=== PATIENT | female | born 1960 | race Caucasian/White ===

== ENCOUNTER 2022-07-16 09:25 | Inpatient (IN) ==
[2022-07-16] MEDS ORDERED: SODIUM CHLORIDE 0.9% 1,000 ML IV STA (09:53)
[2022-07-16] MEDS ORDERED: PIPERACILLIN/TAZOBACTAM 3,375 MG in SODIUM CHLORIDE 0.9% 100 ML IV STA (09:53)
[2022-07-16 10:22] LABS: Hematocrit 19.1 VOL% (35.7-47.0); Hemoglobin 6.5 GM/DL (12.0-16.0); Immature Granulocytes Absolute 0.07 #; Lymphocytes # 0.2 10*3/uL (1.4-4.0); Lymphocytes % 15.8 % (21.3-54.2); Mean Corpuscular Volume 84.5 FL (87-102); Mean Platelet Volume 11.9 FL (9.6-12.0); Monocytes # 0.2 10*3/uL (0.11-0.8); Monocytes % 16.5 % (1.7-12.7); NRBC # 0.03 10*3/uL; Neutrophils % 62.7 % (38.7-73.9); Red Blood Count 2.26 MC/CUMM (3.8-5.5); Red Cell Distribution Width 18.3 % (9.3-17.3); White Blood Count 1.4 T/CUMM (4-12)
[2022-07-16 10:24] LABS: Platelet Count 34 T/CUMM (130-400)
[2022-07-16 10:28] LABS: INR 1.1; PT Patient Result 12.1 SECS (10.1-12.1); Partial Thromboplastin Time 36.8 SECS (23.7-32.9)
[2022-07-16 10:38] LABS: Albumin 2.6 G/DL (3.4-5.0); Bilirubin,Total 0.6 MG/DL (0.20-1.00); Calcium 8.8 MG/DL (8.5-10.1); Osmolality,Calculated 266.5 MOS/KG (273-304); Potassium 3.4 MMOL/L (3.5-5.1); Total Protein 7.1 G/DL (6.4-8.2)
[2022-07-16 10:43] LABS: Band Neutrophils 2 % (0-10); Hypochromia 1+; Lymphocytes 16 % (20-55); Microcytosis 1+; Platelet Estimate Decreased; Total Cells Counted 100
[2022-07-16] MEDS ORDERED: ZALEPLON 5 MG CAPSULE PO PRN (11:46)
[2022-07-16] MEDS ORDERED: ONDANSETRON 4 MG/2 ML VIAL IV PRN (11:46)
[2022-07-16] MEDS ORDERED: ALBUTEROL/IPRATROPIUM 3 ML NEB RESP TX PRN (12:16)
[2022-07-16] MEDS: SODIUM CHLORIDE 0.9% 1,000 ML IV SCH ×2 (14:08→22:00)
[2022-07-16] MEDS: guaiFENesin/DM ER 600-30 MG TABLET PO SCH ×2 (14:09→22:01)
[2022-07-16] MEDS: FILGRASTIM-SNDZ 480 MCG/0.8 ML SYRINGE SUBCUT SCH (14:16)
[2022-07-16] MEDS ORDERED: SODIUM CHLORIDE 0.9% 1,000 ML IV PRN (16:27)
[2022-07-16] MEDS: PIPERACILLIN/TAZOBACTAM 3,375 MG in SODIUM CHLORIDE 0.9% 100 ML IV SCH (18:17)
[2022-07-16] MEDS ORDERED: ACETAMINOPHEN 500 MG TABLET PO PRN (18:52)
[2022-07-17] MEDS: PIPERACILLIN/TAZOBACTAM 3,375 MG in SODIUM CHLORIDE 0.9% 100 ML IV SCH ×3 (02:30→17:32)
[2022-07-17] MEDS: SODIUM CHLORIDE 0.9% 1,000 ML IV SCH ×3 (03:47→17:31)
[2022-07-17 04:59] LABS: Mucus,Urine Occasional /LPF (Occasional); RBC,Urine 173 /HPF (0-4); Squamous Epithelial Cell,Urine Occasional /HPF (0-10)
[2022-07-17 05:00] LABS: Glucose,Urine (UA) Negative (Negative); Protein,Urine 30 mg/dL (Negative); Urine Appearance Clear (Clear); Urine Color Yellow (Yellow)
[2022-07-17 05:01] LABS: Bilirubin,Urine Negative (Negative); Blood, Urine Moderate mg/dL (Negative); Ketones,Urine Negative (Negative); Nitrite,Urine Positive (Negative); Urine Urobilinogen 0.2 eU/dL (<2.0)
[2022-07-17 07:09] LABS: Basophils % 0.8 % (0.0-0.8); Hematocrit 24.5 VOL% (35.7-47.0); Immature Granulocytes % 10.9 %; Immature Granulocytes Absolute 0.28 #; Lymphocytes # 0.2 10*3/uL (1.4-4.0); Lymphocytes % 9.3 % (21.3-54.2); Mean Corpuscular HGB Conc 32.7 GM/DL (32-36); Mean Corpuscular Volume 90.1 FL (87-102); Monocytes # 0.3 10*3/uL (0.11-0.8); Monocytes % 11.6 % (1.7-12.7); NRBC # 0.05 10*3/uL; Neutrophils % 67.4 % (38.7-73.9); Red Cell Distribution Width 18.9 % (9.3-17.3)
[2022-07-17 07:11] LABS: Red Blood Count 2.72 MC/CUMM (3.8-5.5); White Blood Count 2.6 T/CUMM (4-12)
[2022-07-17 07:13] LABS: Platelet Count 35 T/CUMM (130-400)
[2022-07-17 07:31] LABS: Albumin 2.3 G/DL (3.4-5.0); Bilirubin,Total 0.8 MG/DL (0.20-1.00); Calcium 8.7 MG/DL (8.5-10.1); Osmolality,Calculated 273.8 MOS/KG (273-304); Potassium 3.4 MMOL/L (3.5-5.1); Total Protein 6.4 G/DL (6.4-8.2)
[2022-07-17 07:32] LABS: Band Neutrophils 6 % (0-10); Eosinophils 1 % (0-10); Hypochromia Slight; Lymphocytes 13 % (20-55); Microcytosis Slight; Nucleated Red Blood Cells 1 /100 WBC (0-5); Platelet Estimate Decreased; Total Cells Counted 100
[2022-07-17] MEDS ORDERED: VANCOMYCIN INJ 1,000 MG in SODIUM CHLORIDE 0.9% 250 ML IV SCH (08:30)
[2022-07-17] MEDS ORDERED: MYLANTA/LIDO VISC/NYST 180 ML BOTTLE SWISH/SPIT PRN (08:37)
[2022-07-17] MEDS: guaiFENesin/DM ER 600-30 MG TABLET PO SCH ×2 (09:41→22:03)
[2022-07-17] MEDS: FOLIC ACID 1 MG TABLET PO SCH (09:41)
[2022-07-17] MEDS: FLUCONAZOLE 100 MG TABLET PO SCH (09:41)
[2022-07-17] MEDS: PANTOPRAZOLE 40 MG TABLET PO SCH (09:42)
[2022-07-17] MEDS: VANCOMYCIN INJ 1,250 MG in SODIUM CHLORIDE 0.9% 250 ML IV SCH ×2 (09:42→22:03)
[2022-07-17] MEDS: FILGRASTIM-SNDZ 480 MCG/0.8 ML SYRINGE SUBCUT SCH (09:43)
[2022-07-17] MEDS ORDERED: MYLANTA/LIDO VISC/NYST 180 ML BOTTLE SWISH/SWAL PRN (14:30)
[2022-07-17] MEDS: APIXABAN 5 MG TABLET PO SCH (22:03)
[2022-07-18] MEDS: SODIUM CHLORIDE 0.9% 1,000 ML IV SCH ×2 (00:07→17:43)
[2022-07-18] MEDS: PIPERACILLIN/TAZOBACTAM 3,375 MG in SODIUM CHLORIDE 0.9% 100 ML IV SCH ×3 (02:36→18:16)
[2022-07-18 04:51] LABS: Basophils % 0.8 % (0.0-0.8); Hematocrit 25.2 VOL% (35.7-47.0); Hemoglobin 8.2 GM/DL (12.0-16.0); Immature Granulocytes % 28.3 %; Lymphocytes # 0.4 10*3/uL (1.4-4.0); Lymphocytes % 9.5 % (21.3-54.2); Mean Corpuscular HGB Conc 32.5 GM/DL (32-36); Mean Corpuscular Volume 89.7 FL (87-102); Mean Platelet Volume 12.3 FL (9.6-12.0); Monocytes # 0.4 10*3/uL (0.11-0.8); NRBC # 0.09 10*3/uL; Neutrophils % 51.4 % (38.7-73.9); Platelet Count 50 T/CUMM (130-400); Red Blood Count 2.81 MC/CUMM (3.8-5.5); White Blood Count 3.9 T/CUMM (4-12)
[2022-07-18 05:24] LABS: Albumin 2.3 G/DL (3.4-5.0); Bilirubin,Total 0.5 MG/DL (0.20-1.00); Calcium 8.6 MG/DL (8.5-10.1); Osmolality,Calculated 270.8 MOS/KG (273-304); Potassium 2.8 MMOL/L (3.5-5.1); Total Protein 6.5 G/DL (6.4-8.2)
[2022-07-18 05:30] LABS: Band Neutrophils 7 % (0-10); Lymphocytes 8 % (20-55); Platelet Estimate Decreased; Total Cells Counted 100
[2022-07-18 05:31] LABS: Hypochromia Slight; Microcytosis Slight
[2022-07-18] MEDS: PANTOPRAZOLE 40 MG TABLET PO SCH (09:55)
[2022-07-18] MEDS: FOLIC ACID 1 MG TABLET PO SCH (09:55)
[2022-07-18] MEDS: guaiFENesin/DM ER 600-30 MG TABLET PO SCH ×2 (09:55→20:56)
[2022-07-18] MEDS: APIXABAN 5 MG TABLET PO SCH ×2 (09:55→20:56)
[2022-07-18] MEDS: VANCOMYCIN INJ 1,250 MG in SODIUM CHLORIDE 0.9% 250 ML IV SCH ×2 (09:56→23:54)
[2022-07-18] MEDS: FLUCONAZOLE 100 MG TABLET PO SCH (09:56)
[2022-07-18] MEDS: FILGRASTIM-SNDZ 480 MCG/0.8 ML SYRINGE SUBCUT SCH (09:57)
[2022-07-18] MEDS ORDERED: LACTULOSE 20 GM/30 ML UDCUP PO PRN (16:42)
[2022-07-19] MEDS: SODIUM CHLORIDE 0.9% 1,000 ML IV SCH (03:42)
[2022-07-19] MEDS: PIPERACILLIN/TAZOBACTAM 3,375 MG in SODIUM CHLORIDE 0.9% 100 ML IV SCH ×2 (03:43→09:10)
[2022-07-19 04:51] LABS: Basophils # 0.1 10*3/uL (0.0-0.2); Basophils % 0.8 % (0.0-0.8); Eosinophils % 0.1 % (0.00-10.9); Hematocrit 27.3 VOL% (35.7-47.0); Hemoglobin 8.7 GM/DL (12.0-16.0); Immature Granulocytes % 16.8 %; Immature Granulocytes Absolute 1.21 #; Lymphocytes # 0.7 10*3/uL (1.4-4.0); Lymphocytes % 9.7 % (21.3-54.2); Mean Corpuscular HGB Conc 31.9 GM/DL (32-36); Mean Corpuscular Volume 92.2 FL (87-102); Mean Platelet Volume 12.4 FL (9.6-12.0); Monocytes # 0.7 10*3/uL (0.11-0.8); Monocytes % 10.2 % (1.7-12.7); NRBC # 0.13 10*3/uL; Neutrophils % 62.4 % (38.7-73.9); Platelet Count 87 T/CUMM (130-400); Red Blood Count 2.96 MC/CUMM (3.8-5.5); Red Cell Distribution Width 19.6 % (9.3-17.3); White Blood Count 7.2 T/CUMM (4-12)
[2022-07-19 05:05] LABS: Albumin 2.4 G/DL (3.4-5.0); Bilirubin,Total 0.5 MG/DL (0.20-1.00); Calcium 9.2 MG/DL (8.5-10.1); Osmolality,Calculated 276.4 MOS/KG (273-304); Potassium 2.8 MMOL/L (3.5-5.1); Total Protein 6.6 G/DL (6.4-8.2)
[2022-07-19 05:17] LABS: Band Neutrophils 6 % (0-10); Lymphocytes 15 % (20-55); Metamyelocytes 1 %; Nucleated Red Blood Cells 1 /100 WBC (0-5); Promyelocytes 3 %; Total Cells Counted 100
[2022-07-19 05:18] LABS: Hypochromia Slight; Microcytosis 1+; Platelet Estimate Decreased; Polychromasia Slight
[2022-07-19] MEDS ORDERED: POTASSIUM CHLORIDE 20 MEQ TABLET PO PRN (08:45)
[2022-07-19] MEDS: PANTOPRAZOLE 40 MG TABLET PO SCH (09:05)
[2022-07-19] MEDS: guaiFENesin/DM ER 600-30 MG TABLET PO SCH (09:06)
[2022-07-19] MEDS: FLUCONAZOLE 100 MG TABLET PO SCH (09:06)
[2022-07-19] MEDS: FOLIC ACID 1 MG TABLET PO SCH (09:06)
[2022-07-19] MEDS: APIXABAN 5 MG TABLET PO SCH (09:06)
[2022-07-19] MEDS: FILGRASTIM-SNDZ 480 MCG/0.8 ML SYRINGE SUBCUT SCH (09:14)
[2022-07-19] MEDS ORDERED: POTASSIUM CHLORIDE 20 MEQ TABLET PO ONE ×3 (09:26→14:30)
[2022-07-19 12:05] VITALS: BP 143/88
[2022-07-19] MEDS: VANCOMYCIN INJ 1,250 MG in SODIUM CHLORIDE 0.9% 250 ML IV SCH (12:43)
== END 2022-07-19 15:53 | disposition home or self-care (01) | DRG 871 ==
LOC: N.ED 09:25 → N.EDINP 11:46 → SUATTDRO 11:46 → N.EDINP 12:53 → N.TELES 13:06
PROVIDERS: ADMIT Family Medicine; ATTEND Internal Medicine

== ENCOUNTER 2022-08-11 17:06 | Inpatient (IN) ==
[2022-08-11] MEDS ORDERED: SODIUM CHLORIDE 0.9% 1,000 ML IV STA (18:09)
[2022-08-11] MEDS ORDERED: ONDANSETRON 4 MG/2 ML VIAL IV STA (18:09)
[2022-08-11 18:26] LABS: Eosinophils % 2.6 % (0.00-10.9); Lymphocytes # 0.2 10*3/uL (1.4-4.0); Lymphocytes % 39.5 % (21.3-54.2); Mean Corpuscular HGB Conc 32.4 GM/DL (32-36); Mean Corpuscular Volume 92.3 FL (87-102); Mean Platelet Volume 10.7 FL (9.6-12.0); Monocytes # 0.1 10*3/uL (0.11-0.8); Monocytes % 13.2 % (1.7-12.7); Neutrophils % 44.7 % (38.7-73.9); Platelet Count 59 T/CUMM (130-400); Red Blood Count 1.94 MC/CUMM (3.8-5.5); Red Cell Distribution Width 17.5 % (9.3-17.3)
[2022-08-11 18:28] LABS: Hematocrit 17.9 VOL% (35.7-47.0); Hemoglobin 5.8 GM/DL (12.0-16.0); White Blood Count 0.4 T/CUMM (4-12)
[2022-08-11 18:34] LABS: Albumin 2.8 G/DL (3.4-5.0); Bilirubin,Total 0.7 MG/DL (0.20-1.00); Calcium 9.2 MG/DL (8.5-10.1); Osmolality,Calculated 269.4 MOS/KG (273-304); Potassium 3.5 MMOL/L (3.5-5.1); Total Protein 7.4 G/DL (6.4-8.2)
[2022-08-11] MEDS ORDERED: SODIUM CHLORIDE 0.9% 1,000 ML IV PRN (19:13)
[2022-08-11] MEDS ORDERED: ACETAMINOPHEN 325 MG TABLET PO PRN (19:16)
[2022-08-11 19:19] LABS: Lymphocytes 56 % (20-55); Platelet Estimate Decreased; Total Cells Counted 100
[2022-08-11 19:20] LABS: Hypochromia Slight
[2022-08-11 19:21] LABS: Stomatocytes Slight
[2022-08-11] MEDS ORDERED: FILGRASTIM-SNDZ 480 MCG/0.8 ML SYRINGE SUBCUT ONE (20:00)
[2022-08-11] MEDS: SODIUM CHLORIDE 0.9% 1,000 ML IV SCH (20:50)
[2022-08-12 02:08] LABS: Bacteria,Urine Few /HPF (Few); Mucus,Urine Few /LPF (Occasional); RBC,Urine 5 /HPF (0-4); Squamous Epithelial Cell,Urine Moderate /HPF (0-10); Urine Appearance Clear (Clear); Urine Color Yellow (Yellow)
[2022-08-12 02:09] LABS: Bilirubin,Urine Negative (Negative); Blood, Urine Trace mg/dL (Negative); Glucose,Urine (UA) Negative (Negative); Ketones,Urine Negative (Negative); Nitrite,Urine Negative (Negative); Protein,Urine Trace mg/dL (Negative); Urine Urobilinogen 0.2 eU/dL (<2.0); Urine pH 8.5 (4.5-8.0)
[2022-08-12] MEDS: SODIUM CHLORIDE 0.9% 1,000 ML IV SCH ×2 (02:47→10:47)
[2022-08-12 05:01] LABS: Basophils % 1.1 % (0.0-0.8); Eosinophils % 1.1 % (0.00-10.9); Hematocrit 21.3 VOL% (35.7-47.0); Immature Granulocytes % 1.1 %; Immature Granulocytes Absolute 0.01 #; Lymphocytes # 0.4 10*3/uL (1.4-4.0); Lymphocytes % 41.6 % (21.3-54.2); Mean Corpuscular HGB Conc 33.8 GM/DL (32-36); Mean Platelet Volume 10.9 FL (9.6-12.0); Monocytes # 0.1 10*3/uL (0.11-0.8); Monocytes % 13.5 % (1.7-12.7); NRBC # 0.02 10*3/uL; Neutrophils % 41.6 % (38.7-73.9); Red Blood Count 2.29 MC/CUMM (3.8-5.5); Red Cell Distribution Width 16.6 % (9.3-17.3)
[2022-08-12 05:06] LABS: Hemoglobin 7.2 GM/DL (12.0-16.0); Platelet Count 45 T/CUMM (130-400); White Blood Count 0.9 T/CUMM (4-12)
[2022-08-12 05:16] LABS: Albumin 2.5 G/DL (3.4-5.0); Bilirubin,Total 0.8 MG/DL (0.20-1.00); Calcium 8.3 MG/DL (8.5-10.1); Osmolality,Calculated 273.8 MOS/KG (273-304); Potassium 3.3 MMOL/L (3.5-5.1); Total Protein 6.4 G/DL (6.4-8.2)
[2022-08-12 06:36] LABS: Anisocytosis 1+; Band Neutrophils 12 % (0-10); Lymphocytes 44 % (20-55); Nucleated Red Blood Cells 1 /100 WBC (0-5); Platelet Estimate Decreased; Total Cells Counted 100
[2022-08-12 06:37] LABS: Macrocytosis Slight
[2022-08-12] MEDS: FILGRASTIM-SNDZ 480 MCG/0.8 ML SYRINGE SUBCUT SCH (09:32)
[2022-08-12] MEDS: ONDANSETRON 4 MG/2 ML VIAL IV PRN ×2 (09:43→17:48)
[2022-08-12] MEDS ORDERED: VANCOMYCIN INJ 1,000 MG in SODIUM CHLORIDE 0.9% 250 ML IV SCH (11:00)
[2022-08-12] MEDS ORDERED: MYLANTA/LIDO VISC 2:1 300 ML BOTTLE SWISH/SWAL PRN (11:52)
[2022-08-12] MEDS: FLUCONAZOLE 100 MG TABLET PO SCH (13:09)
[2022-08-12] MEDS ORDERED: SODIUM CHLORIDE 0.9% 1,000 ML IV PRN (15:34)
[2022-08-12] MEDS: POTASSIUM CHLORIDE RIDER 10 MEQ/100 ML PREMIX IV SCH ×3 (16:33→19:50)
[2022-08-13] MEDS: SODIUM CHLORIDE 0.9% 1,000 ML IV SCH ×5 (00:05→22:33)
[2022-08-13] MEDS: POTASSIUM CHLORIDE RIDER 10 MEQ/100 ML PREMIX IV SCH (00:18)
[2022-08-13] MEDS ORDERED: POTASSIUM CHLORIDE RIDER 10 MEQ/100 ML PREMIX IV SCH (00:30)
[2022-08-13 06:58] LABS: Basophils % 0.9 % (0.0-0.8); Hemoglobin 8.1 GM/DL (12.0-16.0); Immature Granulocytes % 25.5 %; Immature Granulocytes Absolute 0.28 #; Lymphocytes # 0.2 10*3/uL (1.4-4.0); Lymphocytes % 17.3 % (21.3-54.2); Mean Corpuscular HGB Conc 32.4 GM/DL (32-36); Mean Corpuscular Volume 92.3 FL (87-102); Mean Platelet Volume 10.2 FL (9.6-12.0); Monocytes # 0.1 10*3/uL (0.11-0.8); Monocytes % 9.1 % (1.7-12.7); Neutrophils % 47.2 % (38.7-73.9); Red Blood Count 2.71 MC/CUMM (3.8-5.5); Red Cell Distribution Width 16.5 % (9.3-17.3); White Blood Count 1.1 T/CUMM (4-12)
[2022-08-13 07:17] LABS: Albumin 2.5 G/DL (3.4-5.0); Bilirubin,Total 0.8 MG/DL (0.20-1.00); Calcium 8.9 MG/DL (8.5-10.1); Osmolality,Calculated 274.7 MOS/KG (273-304); Potassium 3.3 MMOL/L (3.5-5.1); Total Protein 6.5 G/DL (6.4-8.2)
[2022-08-13 07:21] LABS: Platelet Count 26 T/CUMM (130-400)
[2022-08-13 07:28] LABS: Band Neutrophils 4 % (0-10); Eosinophils 1 % (0-10); Lymphocytes 17 % (20-55); Platelet Estimate Decreased; Total Cells Counted 100
[2022-08-13 07:29] LABS: Hypochromia Slight; Microcytosis Slight
[2022-08-13 08:02] LABS: Hematocrit 24.2 VOL% (35.7-47.0); Hemoglobin 7.9 GM/DL (12.0-16.0)
[2022-08-13] MEDS: ONDANSETRON 4 MG/2 ML VIAL IV PRN (08:09)
[2022-08-13] MEDS: FLUCONAZOLE 100 MG TABLET PO SCH (10:51)
[2022-08-13] MEDS: FILGRASTIM-SNDZ 480 MCG/0.8 ML SYRINGE SUBCUT SCH (10:58)
[2022-08-13] MEDS: FIDAXOMICIN 200 MG TABLET PO SCH ×2 (12:25→22:33)
[2022-08-13] MEDS ORDERED: METOCLOPRAMIDE 10 MG/2 ML VIAL IM SCH (14:00)
[2022-08-13] MEDS ORDERED: METOCLOPRAMIDE 10 MG/2 ML VIAL IV SCH (18:00)
[2022-08-13] MEDS: METOCLOPRAMIDE 10 MG/2 ML VIAL IV SCH (22:14)
[2022-08-14] MEDS: SODIUM CHLORIDE 0.9% 1,000 ML IV SCH (04:34)
[2022-08-14 04:40] LABS: Hematocrit 23.6 VOL% (35.7-47.0); Hemoglobin 7.6 GM/DL (12.0-16.0); Immature Granulocytes % 9.3 %; Immature Granulocytes Absolute 0.14 #; Lymphocytes # 0.2 10*3/uL (1.4-4.0); Lymphocytes % 13.9 % (21.3-54.2); Mean Corpuscular HGB Conc 32.2 GM/DL (32-36); Mean Corpuscular Volume 92.9 FL (87-102); Mean Platelet Volume 10.3 FL (9.6-12.0); Monocytes # 0.2 10*3/uL (0.11-0.8); Monocytes % 9.9 % (1.7-12.7); Neutrophils % 66.9 % (38.7-73.9); Red Blood Count 2.54 MC/CUMM (3.8-5.5); Red Cell Distribution Width 16.1 % (9.3-17.3); White Blood Count 1.5 T/CUMM (4-12)
[2022-08-14 04:46] LABS: Platelet Count 14 T/CUMM (130-400)
[2022-08-14] MEDS ORDERED: SODIUM CHLORIDE 0.9% 1,000 ML IV PRN ×2 (05:00→08:12)
[2022-08-14 05:07] LABS: Band Neutrophils 1 % (0-10); Hypochromia Slight; Lymphocytes 14 % (20-55); Microcytosis Slight; Platelet Estimate Decreased; Total Cells Counted 100
[2022-08-14 05:10] LABS: Albumin 2.4 G/DL (3.4-5.0); Bilirubin,Total 0.5 MG/DL (0.20-1.00); Calcium 8.6 MG/DL (8.5-10.1); Osmolality,Calculated 273.7 MOS/KG (273-304)
[2022-08-14] MEDS ORDERED: POTASSIUM CHLORIDE 20 MEQ TABLET PO PRN (05:25)
[2022-08-14] MEDS: METOCLOPRAMIDE 10 MG/2 ML VIAL IV SCH ×3 (07:37→22:03)
[2022-08-14] MEDS: SODIUM CHLOR 0.9% KCL 20 MEQ 20 MEQ/1,000 ML BAG IV SCH ×2 (08:51→22:03)
[2022-08-14] MEDS: MORPHINE 2 MG/1 ML SYRINGE IV PRN ×3 (08:52→22:02)
[2022-08-14] MEDS ORDERED: POTASSIUM CHLORIDE 10 MEQ TABLET PO SCH (09:00)
[2022-08-14] MEDS: FIDAXOMICIN 200 MG TABLET PO SCH ×2 (09:25→22:03)
[2022-08-14] MEDS: FLUCONAZOLE 100 MG TABLET PO SCH (09:25)
[2022-08-14] MEDS: FILGRASTIM-SNDZ 480 MCG/0.8 ML SYRINGE SUBCUT SCH (09:26)
[2022-08-14] MEDS: POTASSIUM BICARB EFFERVESCENT 20 MEQ TAB.EFF PO SCH (10:42)
[2022-08-15 05:18] LABS: Basophils % 1.1 % (0.0-0.8); Hematocrit 23.8 VOL% (35.7-47.0); Hemoglobin 7.8 GM/DL (12.0-16.0); Immature Granulocytes % 8.9 %; Immature Granulocytes Absolute 0.17 #; Lymphocytes # 0.2 10*3/uL (1.4-4.0); Lymphocytes % 12.6 % (21.3-54.2); Mean Corpuscular HGB Conc 32.8 GM/DL (32-36); Mean Platelet Volume 10.1 FL (9.6-12.0); Monocytes # 0.2 10*3/uL (0.11-0.8); Neutrophils % 67.4 % (38.7-73.9); Red Blood Count 2.56 MC/CUMM (3.8-5.5); White Blood Count 1.9 T/CUMM (4-12)
[2022-08-15 05:20] LABS: Platelet Count 16 T/CUMM (130-400)
[2022-08-15 05:49] LABS: Albumin 2.4 G/DL (3.4-5.0); Bilirubin,Total 0.5 MG/DL (0.20-1.00); Osmolality,Calculated 276.4 MOS/KG (273-304); Total Protein 6.5 G/DL (6.4-8.2)
[2022-08-15 06:05] LABS: Band Neutrophils 7 % (0-10); Lymphocytes 10 % (20-55); Total Cells Counted 100
[2022-08-15 06:06] LABS: Hypochromia Slight; Microcytosis Slight
[2022-08-15 06:07] LABS: Platelet Estimate Decreased
[2022-08-15] MEDS: METOCLOPRAMIDE 10 MG/2 ML VIAL IV SCH ×3 (06:10→21:15)
[2022-08-15] MEDS ORDERED: SODIUM CHLORIDE 0.9% 1,000 ML IV PRN ×2 (08:09→11:03)
[2022-08-15] MEDS ORDERED: FLUCONAZOLE 40 MG/ML 35 ML/BOTTLE PO SCH (09:00)
[2022-08-15] MEDS ORDERED: FLUCONAZOLE 100 MG TABLET PO SCH (09:00)
[2022-08-15] MEDS: FIDAXOMICIN 200 MG TABLET PO SCH ×2 (09:45→21:18)
[2022-08-15] MEDS: FLUCONAZOLE 40 MG/ML 35 ML/BOTTLE PO SCH (09:46)
[2022-08-15] MEDS: POTASSIUM BICARB EFFERVESCENT 20 MEQ TAB.EFF PO SCH (09:46)
[2022-08-15] MEDS: MORPHINE 2 MG/1 ML SYRINGE IV PRN ×2 (10:08→15:19)
[2022-08-15] MEDS: FILGRASTIM-SNDZ 480 MCG/0.8 ML SYRINGE SUBCUT SCH (10:33)
[2022-08-15] MEDS: SODIUM CHLOR 0.9% KCL 20 MEQ 20 MEQ/1,000 ML BAG IV SCH ×2 (10:33→23:34)
[2022-08-16] MEDS: METOCLOPRAMIDE 10 MG/2 ML VIAL IV SCH (05:46)
[2022-08-16] MEDS: MORPHINE 2 MG/1 ML SYRINGE IV PRN (05:46)
[2022-08-16 05:57] LABS: Basophils % 0.4 % (0.0-0.8); Hemoglobin 7.9 GM/DL (12.0-16.0); Immature Granulocytes Absolute 0.14 #; Lymphocytes # 0.4 10*3/uL (1.4-4.0); Mean Corpuscular HGB Conc 32.9 GM/DL (32-36); Mean Corpuscular Volume 93.8 FL (87-102); Monocytes # 0.3 10*3/uL (0.11-0.8); Monocytes % 14.1 % (1.7-12.7); Neutrophils % 64.5 % (38.7-73.9); Red Blood Count 2.56 MC/CUMM (3.8-5.5); Red Cell Distribution Width 15.9 % (9.3-17.3); White Blood Count 2.3 T/CUMM (4-12)
[2022-08-16 06:12] LABS: Platelet Count 23 T/CUMM (130-400)
[2022-08-16 06:16] LABS: Albumin 2.6 G/DL (3.4-5.0); Bilirubin,Total 0.4 MG/DL (0.20-1.00); Calcium 8.8 MG/DL (8.5-10.1); Osmolality,Calculated 274.5 MOS/KG (273-304); Potassium 3.3 MMOL/L (3.5-5.1); Total Protein 6.6 G/DL (6.4-8.2)
[2022-08-16 06:28] LABS: Hypochromia Slight; Lymphocytes 12 % (20-55); Microcytosis Slight; Platelet Estimate Decreased; Total Cells Counted 100
[2022-08-16] MEDS: FIDAXOMICIN 200 MG TABLET PO SCH (09:33)
[2022-08-16] MEDS: POTASSIUM BICARB EFFERVESCENT 20 MEQ TAB.EFF PO SCH (09:34)
[2022-08-16] MEDS: FLUCONAZOLE 40 MG/ML 35 ML/BOTTLE PO SCH (09:35)
[2022-08-16] MEDS: FILGRASTIM-SNDZ 480 MCG/0.8 ML SYRINGE SUBCUT SCH (09:39)
[2022-08-16 12:27] VITALS: BP 131/87
== END 2022-08-16 13:01 | disposition home or self-care (01) | DRG 371 ==
LOC: N.ED 17:06 → N.EDINP 19:11 → SUATTDRO 19:11 → N.EDINP 21:01 → N.TELEN 08-12 19:46
PROVIDERS: ADMIT Internal Medicine; ATTEND Emergency Medicine